=== PATIENT | female | born 2000 | race Caucasian/White ===

== ENCOUNTER 2018-10-31 23:42 | Emergency (ER) | payer BC, OTHER ==
[2018-11-01 00:28] LABS: Urine Appearance Cloudy; Urine Bacteria 1+ (Absent); Urine Bilirubin Negative (Negative); Urine Blood 3+ (Negative); Urine Color Straw; Urine Glucose Negative (Negative); Urine Ketones Negative (Negative); Urine Nitrite Negative (Negative); Urine Protein 1+(30 mg/dL) (Negative); Urine Red Blood Cell 3+(>10/hpf) (Absent); Urine Specific Gravity 1.003 (1.010-1.030); Urine Urobilinogen Negative (Negative); Urine White Blood Cell 3+(>20/hpf) (Absent)
[2018-11-01] MEDS ORDERED: Phenazopyridine TAB* 100 MG PO ONE (03:51)
[2018-11-01] MEDS ORDERED: Sulfamethox/Trimethoprim DS 800/160* TAB PO ONE (03:52)
--- NOTE | 2018-11-01 04:01 | ED ---
GI/ HPI - HPI Summary HPI Summary: This patient is a 18 year old F presenting to [facility] with a chief complaint of UTI since yesterday morning. The patient rates the pain 6/10 in severity. Patient reports nausea, vomiting, dysuria, and decreased urinary frequency. Patient denies fever. She has a PMHx of UTIs. - History of Current Complaint Chief Complaint: EDUrogenitalProblems Time Seen by Provider: 11/01/18 00:57 Stated Complaint: UTI NEED MEDS -PER PT Hx Obtained From: Patient Onset/Duration: Started Days Ago, Still Present Timing: Lasting Days Severity: Moderate Current Severity: Moderate Pain Intensity: 6 Location of Pain: Suprapubic Associated Signs and Symptoms: Positive: Nausea, Vomiting, Dysuria, Other: - Decreased urinary frequency. Negative: Fever - Allergy/Home Medications Allergies/Adverse Reactions: Allergies Allergy/AdvReac Type Severity Reaction Status Date / Time No Known Allergies Allergy Verified 11/01/18 00:05 PMH/Surg Hx/FS Hx/Imm Hx Endocrine/Hematology History: Denies: Hx Diabetes Respiratory History: Denies: Hx Asthma History: Reports: Other Problems/Disorders - UTI - Surgical History Surgery Procedure, Year, and Place: N/A Infectious Disease History: No Infectious Disease History: Denies: Traveled Outside the [place] in Last 30 Days - Family History Known Family History: Negative: Cardiac Disease, Diabetes - Social History Alcohol Use: Rare Substance Use Type: Reports: None Smoking Status (MU): Never Smoked Tobacco Review of Systems Negative: Fever Positive: Vomiting, Nausea Positive: dysuria, frequency - Decreased All Other Systems Reviewed And Are Negative: Yes Physical Exam - Summary Physical Exam Summary: VITAL SIGNS: Reviewed. GENERAL: Patient is a well-developed and nourished FEMALE who is lying comfortable in the stretcher. Patient is not in any acute respiratory distress. HEAD AND FACE: No signs of trauma. No ecchymosis, hematomas or skull depressions. No sinus tenderness. EYES: PERRLA, EOMI x 2, No injected conjunctiva, no nystagmus. EARS: Hearing grossly intact. Ear canals and tympanic membranes are within normal limits. MOUTH: Oropharynx within normal limits. NECK: Supple, trachea is midline, no adenopathy, no JVD, no carotid bruit, no c- spine tenderness, neck with full ROM. CHEST: Symmetric, no tenderness at palpation LUNGS: Clear to auscultation bilaterally. No wheezing or crackles. CVS: Regular rate and rhythm, S1 and S2 present, no murmurs or gallops appreciated. ABDOMEN: Soft, mild suprapubic tenderness. No signs of distention. No rebound no guarding, and no masses palpated. Bowel sounds are normal. EXTREMITIES: FROM in all major joints, no edema, no cyanosis or clubbing. NEURO: Alert and oriented x 3. No acute neurological deficits. Speech is normal and follows commands. SKIN: Dry and warm Triage Information Reviewed: Yes Vital Signs On Initial Exam: Initial Vitals Temp Pulse Resp BP Pulse Ox 98.4 F 88 16 143/92 100 11/01/18 00:00 11/01/18 00:00 11/01/18 00:00 11/01/18 00:00 11/01/18 00:00 Vital Signs Reviewed: Yes Diagnostics - Vital Signs Vital Signs Temp Pulse Resp BP Pulse Ox 11/01/18 00:00 98.4 F 88 16 143/92 100 - Laboratory Lab Results: Lab Results 11/01/18 Range/Units 00:10 Urine Color Straw Urine Appearance Cloudy Urine pH 6.0 (5-9) Ur Specific [place] 1.003 L (1.010-1.030) Urine Protein 1+(30 mg/dl) A (Negative) Urine Ketones Negative (Negative) Urine Blood 3+ A (Negative) Urine Nitrate Negative (Negative) Urine Bilirubin Negative (Negative) Urine Urobilinogen Negative (Negative) Ur Leukocyte Esterase 3+ A (Negative) Urine WBC (Auto) 3+(>20/hpf) A (Absent) Urine RBC (Auto) 3+(>10/hpf) A (Absent) Urine Bacteria 1+ A (Absent) Urine Glucose Negative (Negative) Lab Statement: Any lab studies that have been ordered have been reviewed, and results considered in the medical decision making process. GIGU Course/Dx - Course Course Of Treatment: This patient is a 18 year old F presenting to [facility] with a chief complaint of UTI since yesterday morning. Patient will be d/c with dx of UTI and medications Pyridium and Bactrim. - Diagnoses Provider Diagnoses: UTI (urinary tract infection) Discharge - Sign-Out/Discharge Documenting (check all that apply): Patient Departure - D/C home Patient Received Moderate/Deep Sedation with Procedure: No - Discharge Plan Condition: Stable Disposition: HOME Prescriptions: Phenazopyridine TAB* [Pyridium 100 mg TAB*] 100 mg PO TID PRN #7 tab PRN Reason: Pain Sulfamethox/Trimethoprim DS* [Bactrim DS 800/160 TAB*] 1 tab PO BID #10 tab Patient Education Materials: Urinary Tract Infection in Women (ED) Referrals: Anna Leach MD [Primary Care Provider] - 2 Days Additional Instructions: RETURN TO THE EMERGENCY DEPARTMENT FOR CHANGING OR WORSENING SYMPTOMS. FOLLOW UP WITH PCP IN 1-2 DAYS. - Attestation Statements Document Initiated by Scribe: Yes Documenting Scribe: Mango Jones Provider For Whom Scribe is Documenting (Include Credential): Minda Mendoza MD Scribe Attestation: Mango Lennon, scribed for Minda Mendoza MD on 11/01/18 at 0410. Status of Scribe Document: Ready
[2018-11-01 05:39] VITALS: BP 130/72
== END 2018-11-01 04:10 | disposition home or self-care (01) ==
LOC: ED 23:42
DX: N39.0 Urinary tract infection, site not specified (principal); R11.2 Nausea with vomiting, unspecified; R30.0 Dysuria
CPT/HCPCS: 81003; 81015; 87086; 99282; A9270-GY